=== PATIENT | female | born 1930 | race Caucasian/White ===

== ENCOUNTER 2017-09-07 10:12 | Inpatient (IN) ==
[2017-09-07 11:02] LABS: Basophils % 0.3 % (0.0-0.8); Eosinophils # 0.3 10*3/uL (0.0-0.87); Eosinophils % 4.4 % (0.00-10.9); Hematocrit 34.3 VOL% (35.7-47.0); Hemoglobin 11.6 GM/DL (12.0-16.0); Immature Granulocytes % 0.3 %; Immature Granulocytes Absolute 0.02 #; Lymphocytes # 2.7 10*3/uL (1.4-4.0); Mean Corpuscular HGB Conc 33.8 GM/DL (32-36); Mean Corpuscular Hemoglobin 30 PG (27-34); Mean Corpuscular Volume 88.6 FL (87-102); Mean Platelet Volume 10.5 FL (9.6-12.0); Monocytes # 0.5 10*3/uL (0.11-0.8); Monocytes % 6.3 % (1.7-12.7); Neutrophils # 4.3 10*3/uL (1.4-7.4); Neutrophils % 54.7 % (38.7-73.9); Platelet Count 269 T/CUMM (130-400); Red Blood Count 3.87 MC/CUMM (3.8-5.5); Red Cell Distribution Width 14.2 % (9.3-17.3); White Blood Count 7.8 T/CUMM (4-12)
[2017-09-07 11:11] LABS: PT Patient Result 10.3 SECS; Partial Thromboplastin Time 27.1 SECS (0-40)
[2017-09-07 11:38] LABS: Alanine Aminotransferase 29 U/L (13-56); Albumin 3.6 G/DL (3.4-5.0); Alkaline Phosphatase 87 U/L (45-117); Aspartate Amino Transferase 22 U/L (0-37); Bilirubin,Total < 0.39 MG/DL (0.2-1.0); Blood Urea Nitrogen 17 MG/DL (7-18); Calcium 8.4 MG/DL (8.5-10.1); Glucose 116 MG/DL (74-106); Osmolality,Calculated 266.5 MOS/KG (273-304); Potassium 4.6 MMOL/L (3.5-5.1); Sodium 132 MMOL/L (136-145); Total Protein 6.4 G/DL (6.4-8.3); Troponin I Only < 0.015 NG/ML (0.00-0.045)
[2017-09-07] MEDS ORDERED: MORPHINE 2 MG/1 ML SYRINGE IV PRN (12:10)
[2017-09-07] MEDS ORDERED: ONDANSETRON 4 MG/2 ML VIAL IV PRN (12:10)
[2017-09-07] MEDS ORDERED: FAMOTIDINE 20 MG TABLET PO ONE (13:12)
[2017-09-07] MEDS ORDERED: DIAZEPAM 5 MG TABLET PO ONE (13:12)
[2017-09-07] MEDS ORDERED: DIAZEPAM 5 MG TABLET ONE (13:21)
[2017-09-07] MEDS ORDERED: FAMOTIDINE 20 MG TABLET ONE (13:21)
[2017-09-07 13:31] LABS: Amorphous Crystals,Urine Many /HPF (Few); Apearance,Urine CLOUDY (Clear); Bilirubin,Urine Negative (Negative); Blood, Urine Negative (Negative); Glucose,Urine (UA) Negative (Negative); Ketones,Urine Negative (Negative); Mucus,Urine Occasional /LPF (Occasional); Nitrite,Urine Negative (Negative); Protein,Urine Negative; Urine Color Yellow (Yellow); Urine Urobilinogen < 2.0 EU/DL (0.2-1.0)
[2017-09-07] MEDS ORDERED: MORPHINE 10 MG/10 ML VIAL ONE (13:49)
[2017-09-07] MEDS: LACTATED RINGERS 1,000 ML IV SCH ×2 (13:55→16:21)
[2017-09-07] MEDS ORDERED: ceFAZolin 1,000 MG VIAL ONE (14:06)
[2017-09-07] MEDS ORDERED: ALBUMIN 5% 12.5 GM/250 ML VIAL IV ONE (15:07)
[2017-09-07] MEDS ORDERED: diphenhydrAMINE 50 MG/1 ML VIAL IV PRN (15:31)
[2017-09-07] MEDS ORDERED: hydrOXYzine HCL 25 MG/1 ML VIAL IM PRN (15:31)
[2017-09-07] MEDS ORDERED: MIDAZOLAM 2 MG/2 ML VIAL ONE ×2 (15:35→15:40)
[2017-09-07] MEDS ORDERED: PROPOFOL 200 MG/20 ML VIAL IV ONE (15:35)
[2017-09-07] MEDS ORDERED: KETAMINE 500 MG/10 ML VIAL ONE (15:36)
[2017-09-07] MEDS ORDERED: MIDAZOLAM 2 MG/2 ML VIAL IV ONE (15:46)
[2017-09-07] MEDS: hydrOXYzine HCL 25 MG TABLET PO SCH (20:47)
[2017-09-08 05:14] LABS: Calcium 7.8 MG/DL (8.5-10.1); Osmolality,Calculated 263.5 MOS/KG (273-304); Potassium 4.4 MMOL/L (3.5-5.1)
[2017-09-08 06:23] LABS: Basophils % 0.3 % (0.0-0.8); Eosinophils # 0.1 10*3/uL (0.0-0.87); Eosinophils % 0.9 % (0.00-10.9); Hematocrit 22.6 VOL% (35.7-47.0); Immature Granulocytes % 0.1 %; Immature Granulocytes Absolute 0.01 #; Lymphocytes # 2.4 10*3/uL (1.4-4.0); Lymphocytes % 34.9 % (21.3-54.2); Mean Corpuscular HGB Conc 33.6 GM/DL (32-36); Mean Corpuscular Hemoglobin 30 PG (27-34); Mean Corpuscular Volume 88.3 FL (87-102); Mean Platelet Volume 10.9 FL (9.6-12.0); Monocytes # 0.5 10*3/uL (0.11-0.8); Monocytes % 6.7 % (1.7-12.7); Neutrophils # 3.9 10*3/uL (1.4-7.4); Neutrophils % 57.1 % (38.7-73.9); Red Cell Distribution Width 14.2 % (9.3-17.3); White Blood Count 6.8 T/CUMM (4-12)
[2017-09-08 06:24] LABS: Hemoglobin 7.6 GM/DL (12.0-16.0); Red Blood Count 2.56 MC/CUMM (3.8-5.5)
[2017-09-08 06:25] LABS: Platelet Count 206 T/CUMM (130-400)
[2017-09-08] MEDS ORDERED: SODIUM CHLORIDE 0.9% 1,000 ML IV PRN (08:25)
[2017-09-08] MEDS: CALCIUM (CARBONATE) 500 MG TABLET PO SCH (10:18)
[2017-09-08] MEDS: PANTOPRAZOLE 40 MG TABLET PO SCH (10:18)
[2017-09-08] MEDS: MULTIVITAMIN (CENTRUM) TABLET PO SCH (10:18)
[2017-09-08] MEDS: IBUPROFEN 200 MG TABLET PO SCH (10:19)
[2017-09-08] MEDS: amLODIPine 2.5 MG TABLET PO SCH (10:19)
[2017-09-08] MEDS ORDERED: ASPIRIN EC 81 MG TABLET PO SCH (12:30)
[2017-09-08] MEDS: LACTATED RINGERS 1,000 ML IV SCH (17:11)
[2017-09-08] MEDS: hydrOXYzine HCL 25 MG TABLET PO SCH (21:07)
[2017-09-08] MEDS: PSYLLIUM POWDER 3.7 GM/PACK PO SCH (21:08)
[2017-09-09 03:55] LABS: Basophils % 0.2 % (0.0-0.8); Eosinophils # 0.2 10*3/uL (0.0-0.87); Eosinophils % 2.2 % (0.00-10.9); Hematocrit 29.3 VOL% (35.7-47.0); Hemoglobin 10.1 GM/DL (12.0-16.0); Immature Granulocytes % 0.2 %; Immature Granulocytes Absolute 0.02 #; Lymphocytes # 2.9 10*3/uL (1.4-4.0); Mean Corpuscular HGB Conc 34.5 GM/DL (32-36); Mean Corpuscular Hemoglobin 29 PG (27-34); Mean Corpuscular Volume 82.5 FL (87-102); Mean Platelet Volume 11.7 FL (9.6-12.0); Monocytes # 0.9 10*3/uL (0.11-0.8); Monocytes % 9.4 % (1.7-12.7); Neutrophils # 5.4 10*3/uL (1.4-7.4); Platelet Count 160 T/CUMM (130-400); Red Blood Count 3.55 MC/CUMM (3.8-5.5); Red Cell Distribution Width 16.5 % (9.3-17.3); White Blood Count 9.5 T/CUMM (4-12)
[2017-09-09 04:33] LABS: Calcium 7.4 MG/DL (8.5-10.1); Osmolality,Calculated 261.7 MOS/KG (273-304); Potassium 4.2 MMOL/L (3.5-5.1)
[2017-09-09] MEDS: amLODIPine 2.5 MG TABLET PO SCH (08:32)
[2017-09-09] MEDS: CALCIUM (CARBONATE) 500 MG TABLET PO SCH (08:32)
[2017-09-09] MEDS: PANTOPRAZOLE 40 MG TABLET PO SCH (08:32)
[2017-09-09] MEDS: MULTIVITAMIN (CENTRUM) TABLET PO SCH (08:32)
[2017-09-09] MEDS: IBUPROFEN 200 MG TABLET PO SCH (08:34)
[2017-09-09] MEDS: PSYLLIUM POWDER 3.7 GM/PACK PO SCH ×3 (08:35→21:31)
[2017-09-09] MEDS: ENOXAPARIN 40 MG/0.4 ML SYRINGE SUBCUT SCH (12:24)
[2017-09-09] MEDS: hydrOXYzine HCL 25 MG TABLET PO SCH (21:25)
[2017-09-10 06:31] LABS: Basophils % 0.1 % (0.0-0.8); Eosinophils # 0.2 10*3/uL (0.0-0.87); Eosinophils % 2.6 % (0.00-10.9); Hematocrit 30.9 VOL% (35.7-47.0); Hemoglobin 10.3 GM/DL (12.0-16.0); Immature Granulocytes % 0.3 %; Immature Granulocytes Absolute 0.03 #; Lymphocytes # 2.2 10*3/uL (1.4-4.0); Lymphocytes % 23.5 % (21.3-54.2); Mean Corpuscular HGB Conc 33.3 GM/DL (32-36); Mean Corpuscular Hemoglobin 28 PG (27-34); Mean Corpuscular Volume 82.4 FL (87-102); Mean Platelet Volume 11.6 FL (9.6-12.0); Monocytes # 0.9 10*3/uL (0.11-0.8); Monocytes % 9.3 % (1.7-12.7); Neutrophils # 5.9 10*3/uL (1.4-7.4); Neutrophils % 64.2 % (38.7-73.9); Platelet Count 157 T/CUMM (130-400); Red Blood Count 3.75 MC/CUMM (3.8-5.5); Red Cell Distribution Width 16.4 % (9.3-17.3); White Blood Count 9.2 T/CUMM (4-12)
[2017-09-10 06:56] LABS: Calcium 7.6 MG/DL (8.5-10.1); Osmolality,Calculated 261.5 MOS/KG (273-304); Potassium 3.5 MMOL/L (3.5-5.1)
[2017-09-10] MEDS: LACTATED RINGERS 1,000 ML IV SCH (07:52)
[2017-09-10] MEDS ORDERED: BISACODYL 10 MG SUPP RECTAL PRN (08:46)
[2017-09-10] MEDS: MULTIVITAMIN (CENTRUM) TABLET PO SCH (09:19)
[2017-09-10] MEDS: amLODIPine 2.5 MG TABLET PO SCH (09:19)
[2017-09-10] MEDS: PANTOPRAZOLE 40 MG TABLET PO SCH (09:20)
[2017-09-10] MEDS: CALCIUM (CARBONATE) 500 MG TABLET PO SCH (09:20)
[2017-09-10] MEDS: IBUPROFEN 200 MG TABLET PO SCH (09:20)
[2017-09-10] MEDS: PSYLLIUM POWDER 3.7 GM/PACK PO SCH (09:23)
[2017-09-10] MEDS: ENOXAPARIN 40 MG/0.4 ML SYRINGE SUBCUT SCH (14:07)
[2017-09-10 14:25] VITALS: BP 128/65
== END 2017-09-10 14:40 | DRG 481 ==
LOC: EDUNIT# → EDBD → N.ED 10:12 → N.EDINP 11:22 → N.3E 13:46
PROVIDERS: ADMIT Internal Medicine; ATTEND Internal Medicine